=== PATIENT | female | born 2000 | race Caucasian/White ===

== ENCOUNTER 2024-07-07 08:51 | Emergency (ER) | payer OTHER, SELFPAY ==
[2024-07-07] MEDS: TORADOL 15 MG IV ×2 (09:17→10:21)
[2024-07-07] MEDS: NSS 1000 IV (09:17)
[2024-07-07] MEDS: ZOFRAN 4 MG IV (09:17)
[2024-07-07 09:22] VITALS: BP 117/74
[2024-07-07 09:25] LABS: % Basophils 0.5 % (0-2); % Eosinophils 0.2 % (0-6); % Immature Granulocytes 0.4 % (0-0.5); % Lymphocytes 12.9 % (20.5-51.1); % Monocytes 4.5 % (1.7-9.3); % Neutrophils 81.5 % (42.2-75.2); Absolute Basophils 0.1 10^3/uL (0-0.2); Absolute Immature Granulocytes 0.1 10^3/uL (0-0.05); Absolute Monocytes 0.7 10^3/uL (0.1-0.6); Absolute Neutrophils 12.6 10^3/uL (1.4-6.5); Hematocrit 38.3 % (37.0-47.0); Hemoglobin 13.4 g/dL (12.0-16.0); Mean Corpuscular Hgb 29.7 pg (27.0-31.0); Mean Corpuscular Volume 84.9 fL (81.0-99.0); Mean Platelet Volume 9.4 fL (7.4-10.4); Nucleated Red Blood Cells % 0 %; Platelet Count 319 10^3/uL (130-400); Red Blood Cell Count 4.51 10^6/uL (4.20-5.40); Red Cell Dist. Width 11.7 % (11.5-14.5); White Blood Cell Count 15.4 10^3/uL (4.8-10.8)
[2024-07-07 09:38] LABS: HCG, Serum Qualitative Screen Negative
[2024-07-07 09:39] LABS: ALT (SGPT) 15 U/L (0-35); AST (SGOT) 19 U/L (14-36); Albumin 4.4 g/dl (3.5-5.0); Alkaline Phosphatase 73 U/L (38-126); Blood Urea Nitrogen 12 mg/dl (7-17); Calcium 9.5 mg/dl (8.4-10.2); Carbon Dioxide 20 mmol/L (22-30); Chloride 109 mmol/L (98-107); Glucose 122 mg/dl (70-99); Sodium 139 mmol/L (135-145); Total Bilirubin 0.7 mg/dl (0.2-1.3); Total Protein 7.2 g/dl (6.3-8.2); eGFR > 60.00
[2024-07-07 10:06] VITALS: BP 115/65
[2024-07-07 10:13] VITALS: BP 115/65
--- NOTE | 2024-07-07 10:19 | ED.GENMED ---
History of Present Illness
General
Chief Complaint: Flank Pain
Source: patient and family
Exam Limitations: none
Time Seen by Provider: 07/07/24 09:04
Nursing documentation reviewed up to this point in time: agreed with
History of Present Illness
History of Present Illness:
23-year-old female presenting to the emergency department today with concerns of right flank pain abrupt this morning fluctuating in intensity. Some urinary symptoms as well. Associated nausea and vomiting.
Review of Systems
Review of Systems
Allergies reviewed?: Yes
All Other Systems: ROS reviewed and negative except as documented in HPI and ROS
Phy Exam
Physical Exam
Physical Exam:
GENERAL: Alert , in no apparent distress
EYE: pupils equal and reactive
NECK: Supple, no significant adenopathy.
ENT: o/p clr, mmm.
CARDIAC: Regular rate and rhythm .
LUNGS: Clear breath sounds bilaterally, no acute respiratory distress, no wheezes/rales/rhonchi
ABDOMEN: Soft, without focal tenderness, no r/g, no cvat
NEUROLOGICAL: Alert and oriented, no focal neuro deficits
SKIN: Warm and dry, skin intact.
MUSCULOSKELETAL: No edema, well perfused.
PSYCH: Normal and appropriate interaction.
Course
Orders/Labs/Results
Orders:
Orders
07/07/24 09:09
Ketorolac [Toradol] 15 mg .ROUTE .STK-MED ONE
Ondansetron Injectable [Zofran] 4 mg .ROUTE .STK-MED ONE
07/07/24 09:15
CT Abd/pel Without Iv Or Oral Urgent
Comment:
Reason For Exam: R flank pain
0.9% Sodium Chloride 1000 ml [Nss] 1,000 ml IV BOLUS
Ketorolac [Toradol] 15 mg IV NOW STA
Ondansetron Injectable [Zofran] 4 mg IV NOW STA
07/07/24 09:16
Test Result ONCE
07/07/24 09:19
CBC/With Diff [Complete Blood Count/With Diff] Urgent
CMP [Comprehensive Metabolic Panel] Urgent
HCG, Serum Qualitative Screen Urgent
07/07/24 10:17
Urinalysis Reflex To Culture Urgent
Date Specimen was Collected: 07/07/24
Time Specimen was Collected: 10:13
Urine Microscopic Reflex Cult Urgent
07/07/24 10:19
Ketorolac [Toradol] 15 mg .ROUTE .STK-MED ONE
07/07/24 10:21
Ketorolac [Toradol] 15 mg IV NOW STA
07/07/24 10:31
Tamsulosin [Flomax] 0.4 mg PO NOW STA
Abnormal Lab Results
07/07/24 07/07/24
09:19 10:17
WBC 15.4 H 10^3/uL
(4.8-10.8)
Abs Immat Gran (auto) 0.1 H 10^3/uL
(0-0.05)
Absolute Neuts (auto) 12.6 H 10^3/uL
(1.4-6.5)
Absolute Monos (auto) 0.7 H 10^3/uL
(0.1-0.6)
Neutrophils % 81.5 H %
(42.2-75.2)
Lymphocytes % 12.9 L %
(20.5-51.1)
Chloride 109 H mmol/L
(98-107)
Carbon Dioxide 20 L mmol/L
(22-30)
Glucose 122 H mg/dl
(70-99)
Ur Occult Blood Reflex 4+ A
(Negative)
Urine Albumin (Reflex) 1+ A
(Neg - Trace)
07/07/24 09:19
07/07/24 09:19
Vital Signs
Initial and Last Documented VS:
Initial Vital Signs
Temp Pulse Resp Pulse Ox
98.0 F 81 18 96
07/07/24 08:58 07/07/24 08:58 07/07/24 08:58 07/07/24 08:58
Last Documented Vital Signs
Temp Pulse Resp BP Pulse Ox
98.0 F 71 16 115/65 100
07/07/24 08:58 07/07/24 10:13 07/07/24 10:13 07/07/24 10:13 07/07/24 09:16
MDM/Problems Addressed
MDM/Problems Addressed:
23-year-old female presenting to the emergency department with abrupt onset right-sided flank pain initially to the flank now moving to the right lower abdomen. Vital signs are normal on arrival. Patient visibly uncomfortable on arrival was given
Toradol with significant improvement of symptoms. White count of 15.4 otherwise labs unremarkable. CT scan showing distal 3 mm stone with hydro-. No evidence of infection on urinalysis other labs unremarkable. Stable for outpatient management
return precautions given.
*Critical Care Note
Total Time (30-74mins, 75-104mins- exclusive of procedures): Not Applicable
ED Attending Note
-
Portions of this chart may have been created with voice recognition software.� Occasional wrong word or��sound alike� substitutions may have occurred due to the inherent limitations of voice recognition software.
Discharge Plan
Departure
Patient Disposition: Home (Routine Discharge)
Date of Disposition: 07/07/24
Time of Disposition: 11:34
Patient with high blood pressure during this ER visit?: No
Condition: Good
Covid-19: Not Applicable
Discharge Problem:
Kidney stone
Instructions: Kidney Stones (DC)
Prescriptions:
New
ondansetron 4 mg tablet,disintegrating
4 mg PO Q6H PRN (Reason: nausea and vomiting) Qty: 7 0RF
tamsulosin [Flomax] 0.4 mg capsule
0.4 mg PO HS Qty: 7 0RF
No Action
polyethylene glycol 3350 17 GRAMS powder in packet
17 grams PO DAILY
famotidine 20 MG tablet
20 mg PO BID Qty: 20 0RF
tamsulosin 0.4 MG capsule
0.4 mg PO DAILY Qty: 6 0RF
ibuprofen 200 MG tablet
400 mg PO Q6HPRN PRN (Reason: pain) Qty: 20 0RF
Referrals:
Clint Esparza MD [Family Provider] -
Asad Galvan MD [Active] - Follow up in 5-7 days
Activity Restrictions/Additional Instructions:
You came to the emergency department today with concerns of flank pain. You are found to have a small kidney stone. This should pass over the next few days. Please follow closely with urology otherwise. Return for any worsening, new or
concerning symptoms.
Interventions
Interventions:
*Risk Screen - Suicide Last Done: 07/07/24 08:58
*General Assessment Last Done: 07/07/24 08:58
*Neglect/Abuse Screening Last Done: 07/07/24 08:58
*ED- Fall Risk Assessment Last Done: 07/07/24 09:16
*ED COVID-19 Vaccine History Last Done: 07/07/24 08:58
HK-Yxnnwy-Msmvmvswot Assessment Last Done: 07/07/24 09:23
ED-Female Genitourinary Assessment Last Done: 07/07/24 09:23
Discharge Date and Time
Print Language: DANISH
[2024-07-07 10:32] LABS: Urine Albumin 1+ (Neg - Trace); Urine Bilirubin Negative (Negative); Urine Character Cloudy (Clear); Urine Color Yellow; Urine Glucose Negative (Negative); Urine Ketone Negative (Negative); Urine Leukocyte Negative (Negative); Urine Nitrite Negative (Negative); Urine Occult Blood 4+ (Negative); Urine Specific Gravity 1.025 (<1.030); Urine Urobilinogen Negative (Neg - 1+)
[2024-07-07] MEDS: FLOMAX 0.4 MG PO (10:35)
[2024-07-07 11:32] LABS: Urine Amorphous Seen
[2024-07-07 11:36] LABS: Urine Squamous Cell 16-20 /LPF (Few)
[2024-07-07 11:42] LABS: Urine Bacteria Few (Negative)
== END 2024-07-07 11:45 | disposition home or self-care (01) ==
LOC: EMR 08:51
PROVIDERS: Physician Assistant; EMERGENCY PHYSICIAN Emergency Medicine; FAMILY PHYSICIAN Family Medicine
DX: N13.2 Hydronephrosis with renal and ureteral calculous obstruction (principal)
CPT/HCPCS: 99285; 96374; 96375; 96361; 96376; 74176; 80053; 81003; 81015; 84703; 85025